=== PATIENT | male | born 1955 | race Caucasian/White ===

== ENCOUNTER → 2021-10-20 | Outpatient (CLI) | payer MEDICARE, OTHER ==
[~2021-10-20] MED LIST: DILT1CAP10 PO; IRBE150T7 PO; METF500T13 PO; ROSU5TAB5 PO; TADA10TA PO; TRUL10IN SC; VASC1CAP2 PO; XARE20TA PO
== END ==
LOC: M LABSMTC 09:42
PROVIDERS: ATTEND Anesthesiology
DX: Z11.52 Encounter for screening for COVID-19 (principal); Z20.822 Contact with and (suspected) exposure to COVID-19

== ENCOUNTER 2021-10-25 08:53 | Day surgery (SDC) | payer MEDICARE, OTHER ==
[~2021-10-25] VITALS: Ht 180.3 cm; Wt 95.6 kg
[~2021-10-25 08:53] MED LIST changes: +NS 1,000 ML IV ONE
[2021-10-25] MEDS ORDERED: propofoL 500 MG/50 ML VIAL As Ordered ONE (09:51)
[2021-10-25] MEDS ORDERED: LIDOCAINE 2% 100MG/5ML SDV (FOR ANES.) As Ordered ONE (09:51)
[2021-10-25] MEDS ORDERED: fentaNYL 100 MCG/2 ML INJECTION As Ordered ONE (09:51)
[2021-10-25] MEDS ORDERED: LABETALOL 100MG/20ML VIAL As Ordered ONE (10:33)
[2021-10-25 11:14] VITALS: BP 125/84
== END 2021-10-25 11:15 | disposition home or self-care (01) ==
LOC: M OPP 08:53
PROVIDERS: ATTEND Internal Medicine Gastroenterology
DX: Z12.11 Encounter for screening for malignant neoplasm of colon (principal); Z86.010 Personal history of colon polyps; K57.30 Diverticulosis of large intestine without perforation or abscess without bleeding; K64.0 First degree hemorrhoids; K22.89 Other specified disease of esophagus; K21.9 Gastro-esophageal reflux disease without esophagitis; Z79.84 Long term (current) use of oral hypoglycemic drugs; Z79.899 Other long term (current) drug therapy; Z87.891 Personal history of nicotine dependence
CPT/HCPCS: 43239; 88305; G0105; J3010

== ENCOUNTER → 2024-01-18 | Outpatient (CLI) | payer MEDICARE, OTHER ==
[~2024-01-18] MED LIST changes: -DILT1CAP10 PO; +DILT360C8 PO; +IRBE150T27 PO; -IRBE150T7 PO; -NS 1,000 ML IV ONE; +ROSU5TAB40 PO; -ROSU5TAB5 PO
== END ==
LOC: M RAD 08:06
PROVIDERS: ATTEND Internal Medicine
DX: Z12.2 Encounter for screening for malignant neoplasm of respiratory organs (principal); F17.211 Nicotine dependence, cigarettes, in remission